=== PATIENT | female | born 1965 | race African-American/Black ===

== ENCOUNTER 2019-03-08 21:53 | Emergency (ER) | payer MEDICAID ==
[~2019-03-08] VITALS: Ht 165.1 cm; Wt 60.0 kg
[2019-03-09] MEDS ORDERED: IBUPROFEN 800MG TABLET PO ONE (01:00)
[2019-03-09 01:18] VITALS: BP 124/86
== END 2019-03-09 01:23 | disposition home or self-care (01) ==
LOC: ER 21:53
DX: S10.83XA Contusion of other specified part of neck, initial encounter (principal); S09.90XA Unspecified injury of head, initial encounter; M54.5 Low back pain; V49.40XA Driver injured in collision with unspecified motor vehicles in traffic accident, initial encounter; Y93.89 Activity, other specified; Y92.410 Unspecified street and highway as the place of occurrence of the external cause; R03.0 Elevated blood-pressure reading, without diagnosis of hypertension; F17.210 Nicotine dependence, cigarettes, uncomplicated; F12.90 Cannabis use, unspecified, uncomplicated
CPT/HCPCS: 99283